=== PATIENT | male | born 1980 | race Caucasian/White ===

== ENCOUNTER → 2022-10-05 | Outpatient (CLI) | payer BC ==
--- NOTE | 2022-10-06 07:20 | MR ---
EXAMINATION TYPE: MR knee RT wo con DATE OF EXAM: 10/05/2022 COMPARISON: Outside right knee x-ray October 04, 2022 HISTORY: Right knee pain, and swelling since injury 09-03-22. History of prior surgery. TECHNIQUE: Multiplanar, multisequence images of the knee is performed without IV contrast. FINDINGS: MEDIAL MENISCUS: Truncated appearance to the medial meniscus favors product of prior surgery. Oblique increased signal in the remnant medial meniscus noted seen best on coronal image 21 extending to inf erior articular surface. LATERAL MENISCUS: Anterior and posterior horns are intact without tear. CRUCIATE LIGAMENTS: The anterior and posterior cruciate ligaments are intact and unremarkable. COLLATERAL LIGAMENTS: The medial collateral ligament and lateral collateral ligament complex are inta ct and unremarkable. EXTENSOR MECHANISM: Visualized quadriceps and patellar tendons are intact. EFFUSION: No significant suprapatellar joint effusion. POPLITEAL CYST: No popliteal/lipscomb cyst. TRICOMPARTMENT SPACES: At least mild narrowing medial tibiofemoral compartment. Mild tricompartment s purring. CARTILAGE: Some cartilaginous loss medial tibiofemoral compartment. BONE MARROW SIGNAL: No focal abnormal marrow signal is appreciated. OTHER: No additional significant abnormality is appreciated. IMPRESSION: 1. Suspect prior surgery medial meniscus. Recurrent meniscal tear is thought present in the remnant m eniscus. 2. Mild tricompartment degenerative changes as detailed above.
== END | disposition home or self-care (01) ==
LOC: RADMRIMAIN 19:33
PROVIDERS: ATTEND Orthopaedic Surgery
DX: M17.11 Unilateral primary osteoarthritis, right knee (principal)